=== PATIENT | female | born 1950 | race Caucasian/White ===

== ENCOUNTER → 2025-06-28 | Outpatient (CLI) | payer MEDICARE ==
[~2025-06-28] MED LIST: AMOX-426 PO; CALC-322 PO; HYDR-2132 PO; LEVO150 PO; POTA99TA26 PO; WARF5TAB PO
== END | disposition home or self-care (01) ==
LOC: RAH 10:37
PROVIDERS: ATTEND Nurse Practitioner Family
DX: Z12.31 Encounter for screening mammogram for malignant neoplasm of breast (principal)
CPT/HCPCS: 77067